=== PATIENT | male | born 1955 | race Caucasian/White ===

== ENCOUNTER 2019-07-25 11:27 | Emergency (ER) | payer SELFPAY ==
--- NOTE | 2019-07-25 11:52 | ER Document Report ---
ED Medical Screen (RME) - General Chief Complaint: Groin Pain Stated Complaint: FLANK PAIN Time Seen by Provider: 07/25/19 11:45 Primary Care Provider: DAVID KEBEDE [Primary Care Provider] - Follow up as needed Notes: Patient is a 64-year-old male who presents the emergency department with a chief complaint of right groin pain. Patient states that on Thursday when he was at work he felt he tingling/numbness sensation in his right groin. He also states that the area feels puffy. Patient states that over the weekend it went away and this morning when he was at work he felt the pain again. Patient states that he is got a history of kidney stones and states that this does not feel like kidney stone pain. Exam: Exam limited due to the patient not in a gown for proper assessment. Patient will be evaluated by a main side provider when he is in her room. Abdomen soft, nontender. I have greeted and performed a rapid initial assessment of this patient. A comprehensive ED assessment and evaluation of the patient, analysis of test results and completion of medical decision making process will be conducted by an additional ED providers. TRAVEL OUTSIDE OF THE [place] IN LAST 30 DAYS: No - Related Data Allergies/Adverse Reactions: No Known Allergies Allergy (Verified 07/25/19 11:44) Past Medical History - Social History Chew tobacco use (# tins/day): No Frequency of alcohol use: Heavy Drug Abuse: Marijuana Physical Exam - Vital signs Vitals: Temp Pulse BP Pulse Ox 97.9 F 89 146/97 H 97 07/25/19 11:33 07/25/19 11:33 07/25/19 11:33 07/25/19 11:33 Course - Vital Signs Vital signs: Temp Pulse Resp BP Pulse Ox 97.9 F 89 146/97 H 97 07/25/19 11:33 07/25/19 11:33 07/25/19 11:33 07/25/19 11:33 Doctor's Discharge - Discharge Referrals: DAVID KEBEDE [Primary Care Provider] - Follow up as needed
[2019-07-25 12:30] LABS: ABSOLUTE LYMPHOCYTES (AUTO) 1.6 10^3/uL (0.5-4.7); ABSOLUTE MONOCYTES (AUTO) 0.6 10^3/uL (0.1-1.4); ABSOLUTE NEUT (AUTO) 5.9 10^3/uL (1.7-8.2); BASOPHILS % (AUTO) 0.3 % (0-2); EOSINOPHILS % (AUTO) 0.1 % (0-6); HEMATOCRIT 51.9 % (37.9-51.0); HEMOGLOBIN 17.8 g/dL (13.5-17.0); LYMPHOCYTES % (AUTO) 19.3 % (13-45); MEAN CORPUSCULAR HEMOGLOBIN 34.1 pg (27.0-33.4); MEAN CORPUSCULAR HGB CONC 34.4 g/dL (32.0-36.0); MEAN CORPUSCULAR VOLUME 99 fl (80-97); MONOCYTES % (AUTO) 7.3 % (3-13); PLATELET COUNT 224 10^3/uL (150-450); RED BLOOD COUNT 5.24 10^6/uL (4.35-5.55); RED CELL DISTRIBUTION WIDTH 12.6 % (11.5-14.0); TOTAL CELLS COUNTED % (AUTO) 100 %
[2019-07-25 12:40] LABS: APPEARANCE,URINE CLEAR; BILIRUBIN,URINE NEGATIVE (NEGATIVE); COLOR,URINE COLORLESS; GLUCOSE, URINE NEGATIVE (NEGATIVE); KETONES,URINE NEGATIVE (NEGATIVE); LEUKOCYTE ESTERASE,URINE NEGATIVE (NEGATIVE); NITRITE,URINE NEGATIVE (NEGATIVE); PROTEIN,URINE NEGATIVE (NEGATIVE); URINE SPECIFIC GRAVITY 1.001; UROBILINOGEN,URINE NEGATIVE mg/dL (<2.0)
[2019-07-25 12:49] LABS: ANION GAP 16 (5-19)
[2019-07-25 13:18] LABS: ALBUMIN 5.1 g/dL (3.5-5.0); ALKALINE PHOSPHATASE 84 U/L (38-126); ASPARTATE AMINO TRANSFERASE 52 U/L (17-59); BILIRUBIN,DIRECT 0.2 mg/dL (0.0-0.4); BILIRUBIN,TOTAL 0.8 mg/dL (0.2-1.3); BLOOD UREA NITROGEN 8 mg/dL (7-20); CALCIUM 9.9 mg/dL (8.4-10.2); CARBON DIOXIDE 21 mmol/L (22-30); CHLORIDE 102 mmol/L (98-107); GLUCOSE 92 mg/dL (75-110); POTASSIUM 4.2 mmol/L (3.6-5.0); TOTAL PROTEIN 8.4 g/dL (6.3-8.2)
--- NOTE | 2019-07-25 14:10 | ER Document Report ---
ED General - General Chief Complaint: Groin Pain Stated Complaint: FLANK PAIN Time Seen by Provider: 07/25/19 11:45 Primary Care Provider: DAVID KEBEDE [NO LOCAL MD] - Follow up as needed Notes: 64 yr old male presents to ED today c/o 3-4 months of right groin pain described as an intermittent burning/stinging sensation. Denies any pain radiating down his leg beyond the groin. Pt also notes "puffiness" in his right groin area. Decided to come to ED because his pain has not improved and intensified to its worst at work today. Notes increased pain with coughing and laughing. States he cannot recall inciting event. Denies trauma to the area. 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 Notes history of kidney stones, but states this does not feel similar. Denies constipation or straining to have bowel movements, denies fever, dysuria, hematuria, and constipation. Denies penile discharge or lesions. TRAVEL OUTSIDE OF THE [place] IN LAST 30 DAYS: No - Related Data Allergies/Adverse Reactions: No Known Allergies Allergy (Verified 07/25/19 11:44) Past Medical History - General Information source: Patient - Social History Smoking Status: Current Every Day Smoker Chew tobacco use (# tins/day): No Frequency of alcohol use: Heavy Drug Abuse: Marijuana Family History: Reviewed & Not Pertinent Patient has suicidal ideation: No Patient has homicidal ideation: No - Past Medical History Cardiac Medical History: Reports: Hx Hypertension Review of Systems - Review of Systems Constitutional: No symptoms reported Gastrointestinal: See HPI -: Yes All other systems reviewed and negative Physical Exam - Vital signs Vitals: Temp Pulse BP Pulse Ox 97.9 F 89 146/97 H 97 07/25/19 11:33 07/25/19 11:33 07/25/19 11:33 07/25/19 11:33 Interpretation: Hypertensive - Notes Notes: GENERAL: Alert, interacts well. No acute distress. HEAD: Normocephalic, atraumatic EYES: Pupils equal, round and reactive to light, extraocular movements intact. ENT: Oral mucosa moist, tongue midline. NECK: Full range of motion, supple, trachea midline. LUNGS: Clear to auscultation bilaterally, no wheezes, rales or rhonchi, no respiratory distress. HEART: Regular rate and rhythm, no murmurs, gallops, rubs. ABDOMEN: Soft, bulging the right groin, tender to palpation, worsens with cough and straining, reduces easily with gentle pressure, somewhat tender to palpation, no changes in the skin, no erythema, no lesions. Testicles are descended bilaterally, cremasteric reflex intact, testicles are nontender to palpation, no fluid in the scrotum. EXTREMITIES: Moves all 4 extremities spontaneously. No cyanosis. NEUROLOGICAL: Alert and oriented x3, normal speech. PSYCH: Normal mood, normal affect. SKIN: Warm, Dry, normal turgor, no rashes or lesions noted. Course - Re-evaluation Re-evalutation: 07/25/19 14:12 CBC shows slight hemoconcentration with hemoglobin 17.8, platelets normal, no leukocytosis, CO2 low in the CMP at 21 otherwise unremarkable, urinalysis shows no signs of blood. Presentation not consistent with kidney stone. Physical exam supports femoral hernia, no evidence of strength elation or incarceration. Discussed with patient that he should wear tight fitting underwear, currently he wears boxers. Discussed the use of a lifting belt to encourage good lifting technique and the need to follow-up with a surgeon for evaluation for possible surgical repair of a femoral hernia. Discussed all signs and symptoms of strength elation or incarceration and need to return should he develop an extremely painful, firm, irreducible mass. Patient is in agreement with this plan will be discharged to home. Patient also counseled on techniques to reduce risk of constipation. Discharged home. - Vital Signs Vital signs: Temp Pulse Resp BP Pulse Ox 97.9 F 89 146/97 H 97 07/25/19 11:33 07/25/19 11:33 07/25/19 11:33 07/25/19 11:33 - Laboratory Result Diagrams: 07/25/19 12:02 07/25/19 12:02 Laboratory results interpreted by me: 07/25/19 07/25/19 12:02 12:02 Hgb 17.8 H Hct 51.9 H MCV 99 H MCH 34.1 H Carbon Dioxide 21 L Total Protein 8.4 H Albumin 5.1 H Discharge - Discharge Clinical Impression: Femoral hernia of right side Condition: Stable Disposition: HOME, SELF-CARE Additional Instructions: Hernia You have a hernia. A hernia forms at a weak spot in the abdominal wall. Bowel slips out of the abdominal cavity into the weak spot. Hernias tend to occur in the groin (especially in males), the fold of the thigh, the naval, or at a surgical scar. Surgical repair of the defect is usually necessary. The problem tends to get worse. It's important that you follow up as recommended. For now, you should avoid straining, heavy lifting, and vigorous exercise. Complications occur if the hernia becomes tightly stuck. You should come back immediately if the area becomes increasingly painful, swollen, or discolored, or if you develop abdominal pain and vomiting. Please follow-up with his surgeon, call to make an appointment, I have given you names of surgeons that you can call. Please also avoid lifting more than 20 pounds. I have written you a work note to say this. Forms: Special Work Note Referrals: HUGO ALEMAN MD [ACTIVE STAFF] - Follow up in 1 week
[2019-07-25 14:21] VITALS: BP 140/97
== END 2019-07-25 14:21 | disposition home or self-care (01) ==
LOC: ER 11:27
DX: K41.90 Unilateral femoral hernia, without obstruction or gangrene, not specified as recurrent (principal); R10.30 Lower abdominal pain, unspecified; F17.200 Nicotine dependence, unspecified, uncomplicated; Z87.442 Personal history of urinary calculi
CPT/HCPCS: 36415; 80053; 81001; 85025; 99283